=== PATIENT | female | born 1985 | race Caucasian/White ===

== ENCOUNTER 2022-06-27 05:13 | Inpatient (IN) | payer MEDICAID ==
[~2022-06-27] VITALS: Ht 165.1 cm; Wt 73.9 kg
[2022-06-27] MEDS ORDERED: RHO(D) IMMUNE GLOBULIN 300 MCG/SYR IM ONE (06:45)
[2022-06-27] MEDS ORDERED: METHYLERGONOVINE MALEATE 0.2 MG/ML IM PRN (06:45)
[2022-06-27] MEDS ORDERED: OXYTOCIN 30 UNITS/500ML NS PMX 500 ML IV SCH ×2 (06:45→10:45)
[2022-06-27] MEDS ORDERED: NALOXONE HCL 0.4 MG/ML 1ML VIAL IM PRN (06:45)
[2022-06-27] MEDS ORDERED: CARBOPROST TROMETHAMINE 250 MCG/ML AMPUL IM PRN (06:45)
[2022-06-27] MEDS ORDERED: MISOPROSTOL 100MCG TABLET VG SCH (06:45)
[2022-06-27] MEDS: LACTATED RINGERS 1,000 ML IV SCH (07:14)
[2022-06-27 07:44] LABS: BASOPHILS % 0.3 % (0.0-2.0); EOSINOPHILS % 1.1 % (0.0-5.0); HEMATOCRIT. 36.9 % (36.0-48.0); HEMOGLOBIN. 12.6 g/dL (12.0-16.0); LYMPHOCYTES % 25.9 % (20.0-50.0); MEAN CORPUSCULAR HEMOGLOBIN 30.8 pg (28.0-32.0); MEAN CORPUSCULAR VOLUME 90.2 fL (81.0-99.0); MEAN PLATELET VOLUME 11.7 fl (7.4-10.4); MONOCYTES % 6.1 % (2.0-8.0); NEUTROPHILS % 66.6 % (40.0-76.0); PLATELET 171 x1000/uL (130-400); RED BLOOD CELL COUNT 4.09 mill/uL (4.2-5.4); RED CELL DISTRIBUTION WIDTH 13.2 % (11.6-14.6)
[2022-06-27 08:02] LABS: CLARITY URINE CLOUDY (CLEAR); COLOR URINE YELLOW (YELLOW); KETONES URINE NEGATIVE (NEGATIVE); LEUKOCYTE ESTERASE URINE NEGATIVE (NEGATIVE); NITRITE URINE NEGATIVE (NEGATIVE); OCCULT BLOOD URINE TRACE (NEGATIVE); PROTEIN URINE NEGATIVE (NEGATIVE); SPECIFIC GRAVITY URINE 1.015 (1.005-1.030); UROBILINOGEN URINE 0.2 E.U./dL (0.2-1.0)
[2022-06-27] MEDS ORDERED: EPHEDRINE SULFATE 50MG/ML VIAL ONE (08:05)
[2022-06-27] MEDS ORDERED: ONDANSETRON HCL 4MG/2ML INJ ONE (08:05)
[2022-06-27] MEDS ORDERED: OXYTOCIN 10 UNITS/ML 1ML ONE (08:05)
[2022-06-27] MEDS ORDERED: CEFAZOLIN SODIUM 1000MG/VIAL ONE (08:05)
[2022-06-27] MEDS ORDERED: DIPHENHYDRAMINE 50MG/ML VIAL ONE (08:05)
[2022-06-27] MEDS ORDERED: FENTANYL CITRATE/PF 50MCG/ML 2ML VIAL ONE (08:06)
[2022-06-27] MEDS ORDERED: MORPHINE SULFATE/PF 1MG/ML 10ML AMP ONE (08:06)
[2022-06-27] MEDS ORDERED: PHENYLEPHRINE HCL 10 MG/ML 1ML (IV VIAL) IV ONE (08:06)
[2022-06-27 08:17] LABS: INR 0.9; PROTHROMBIN TIME 9.8 sec (9.6-11.0)
[2022-06-27 08:33] LABS: HEPATITIS B SURFACE ANTIGEN NEGATIVE
[2022-06-27 08:39] LABS: PARTIAL THROMBOPLASTIN TIME 30.1 sec (23.4-31.0)
[2022-06-27] MEDS ORDERED: CITRIC ACID/SODIUM CITRATE SOLN 30ML UDC PO NR (08:45)
[2022-06-27 09:05] LABS: *AMPHETAMINES SCREEN URINE NEGATIVE (NEGATIVE); *BARBITURATES SCREEN URINE NEGATIVE (NEGATIVE); *BENZODIAZEPINES SCREEN URINE NEGATIVE (NEGATIVE); *COCAINE SCREEN URINE NEGATIVE (NEGATIVE); CANNABINOID URINE SCREEN NEGATIVE (NEGATIVE); METHADONE URINE SCREEN NEGATIVE (NEGATIVE); OPIATES URINE SCREEN NEGATIVE (NEGATIVE); PHENCYCLIDINE URINE SCREEN NEGATIVE (NEGATIVE)
[2022-06-27] MEDS ORDERED: LANOLIN OINT 7GM TUBE TOP PRN (10:45)
[2022-06-27] MEDS ORDERED: RHO(D) IMMUNE GLOBULIN 300 MCG/SYR IM PRN (10:45)
[2022-06-27] MEDS ORDERED: ONDANSETRON HCL 4MG/2ML INJ IV PRN (10:45)
[2022-06-27] MEDS ORDERED: ACETAMINOPHEN WITH CODEINE 300/30MG TABLET PO PRN (10:45)
[2022-06-27] MEDS ORDERED: HEMORRHOIDAL SUPP PR PRN (10:45)
[2022-06-27] MEDS ORDERED: IBUPROFEN 400MG TABLET PO PRN (10:45)
[2022-06-27] MEDS ORDERED: DIPHENHYDRAMINE 25MG CAPSULE PO PRN (10:45)
[2022-06-27] MEDS ORDERED: KETOROLAC 60MG/2ML VIAL IM ONE (11:09)
[2022-06-27] MEDS ORDERED: DIPHENHYDRAMINE 50MG/ML VIAL IV PRN (11:30)
[2022-06-27] MEDS ORDERED: BUTORPHANOL TARTRATE 2 MG/ML VIAL IV PRN (11:30)
[2022-06-27] MEDS ORDERED: NALOXONE HCL 0.4 MG/ML 1ML VIAL IV PRN (11:30)
[2022-06-27 13:25] VITALS: BP 113/68
[2022-06-27 16:00] VITALS: BP 110/65
[2022-06-27] MEDS: MAGNESIUM/ALUMINUM HYDROXIDE/SIMETHICONE 30ML UDC PO SCH (17:23)
[2022-06-27] MEDS: KETOROLAC 30MG/ML VIAL IV SCH (17:23)
[2022-06-27] MEDS: SIMETHICONE 80MG TABLET CHEW PO SCH ×2 (17:23→20:26)
[2022-06-27 19:50] VITALS: BP 114/81
[2022-06-27] MEDS: DOCUSATE SODIUM 100MG CAPSULE PO SCH (20:26)
[2022-06-27 23:30] VITALS: BP 103/62
[2022-06-28] MEDS: KETOROLAC 30MG/ML VIAL IV SCH ×2 (00:23→05:59)
[2022-06-28] MEDS: LACTATED RINGERS 1,000 ML IV SCH (03:07)
[2022-06-28 04:30] VITALS: BP 98/60
[2022-06-28] MEDS ORDERED: KETOROLAC 30MG/ML VIAL IV SCH (06:00)
[2022-06-28 08:00] VITALS: BP 102/58
[2022-06-28] MEDS: MAGNESIUM/ALUMINUM HYDROXIDE/SIMETHICONE 30ML UDC PO SCH ×5 (08:58→19:35)
[2022-06-28] MEDS: PRENATAL VIT/FE FUMARATE/FA TABLET PO SCH (08:58)
[2022-06-28] MEDS: FERROUS SULFATE 325MG TABLET PO SCH ×3 (08:58→17:30)
[2022-06-28] MEDS: SIMETHICONE 80MG TABLET CHEW PO SCH ×4 (08:58→19:36)
[2022-06-28 09:54] LABS: BASOPHILS % 0.2 % (0.0-2.0); EOSINOPHILS % 0.8 % (0.0-5.0); HEMATOCRIT. 34.1 % (36.0-48.0); HEMOGLOBIN. 11.7 g/dL (12.0-16.0); LYMPHOCYTES % 18.4 % (20.0-50.0); MEAN CORPUSCULAR HEMOGLOBIN 31.2 pg (28.0-32.0); MONOCYTES % 5.4 % (2.0-8.0); NEUTROPHILS % 75.2 % (40.0-76.0); PLATELET 160 x1000/uL (130-400); RED BLOOD CELL COUNT 3.74 mill/uL (4.2-5.4); RED CELL DISTRIBUTION WIDTH 13.4 % (11.6-14.6)
[2022-06-28] MEDS: IBUPROFEN 800MG TABLET PO PRN ×3 (11:36→23:37)
[2022-06-28 16:00] VITALS: BP 118/63
[2022-06-28] MEDS: DOCUSATE SODIUM 100MG CAPSULE PO SCH (19:35)
[2022-06-28 20:01] VITALS: BP 114/79
[2022-06-29 04:00] VITALS: BP 130/72
[2022-06-29] MEDS ORDERED: IBUP-2030 PO (04:26)
[2022-06-29 08:00] VITALS: BP 123/76
[2022-06-29 08:04] VITALS: BP 130/72
[2022-06-29] MEDS: PRENATAL VIT/FE FUMARATE/FA TABLET PO SCH (08:04)
[2022-06-29] MEDS: SIMETHICONE 80MG TABLET CHEW PO SCH (08:04)
[2022-06-29] MEDS: MAGNESIUM/ALUMINUM HYDROXIDE/SIMETHICONE 30ML UDC PO SCH (08:04)
[2022-06-29] MEDS: FERROUS SULFATE 325MG TABLET PO SCH (08:04)
[2022-06-29] MEDS: IBUPROFEN 800MG TABLET PO PRN (08:04)
== END 2022-06-29 10:40 | disposition home or self-care (01) | DRG 539 ==
LOC: 8 EST LDRP 05:13 → OBSVTOIN 05:13 → 8EST 13:33
PROVIDERS: ADMIT Obstetrics & Gynecology; ATTEND Obstetrics & Gynecology
PROC: 10D00Z1 Extraction of Products of Conception, Low, Open Approach (ICD-10-PCS; principal; 2022-06-27)
PROC: 0UB70ZZ Excision of Bilateral Fallopian Tubes, Open Approach (ICD-10-PCS; 2022-06-27)
DX: O34.211 Maternal care for low transverse scar from previous cesarean delivery (principal); Z20.822 Contact with and (suspected) exposure to COVID-19; Z37.0 Single live birth; Z3A.39 39 weeks gestation of pregnancy; Z30.2 Encounter for sterilization
CPT/HCPCS: 36415; 80305; 81003; 85025; 86592; 86703; 86762; 86850; 86900; 87340; 87426; 88302; 88307; 99281; J0690; J1200; J1885; J2274; J2370; J2405; J3010; J3490; J7120; A4315; J2590